=== PATIENT | male | born 1990 ===

== ENCOUNTER 2024-12-15 07:00 | Day surgery (SDC) | payer OTHER ==
[2024-12-08 09:09] VITALS: BP 138/94
[2024-12-08 09:23] LABS: URINE APPEARANCE Clear; URINE BILIRRUBIN Negative (NEGATIVE); URINE BLOOD Negative; URINE COLOR Yellow; URINE GLUCOSE Negative (NEGATIVE); URINE KETONE Negative (NEGATIVE); URINE LEUKOCYTE Negative; URINE NITRATE Negative; URINE PROTEIN Negative (NEGATIVE); URINE UROBILINOGEN 0.2 E.U./dl
[2024-12-08 09:27] LABS: URINE RBC 4.6 uL (0.0-20.8); URINE WBC 1.8 uL (0.0-23.2)
[2024-12-08 09:31] LABS: URINE BACTERIA 3.5 uL (0.0-1933); URINE CAST 0.00 uL (0.0-1.40); URINE EPITHELIAL CELLS 0.6 uL (0.0-38.8)
[2024-12-08 09:35] LABS: BASO % 0.5 % (0.1-1.2); EOS # 0.13 (0.04-0.54); EOS % 1.7 % (0.7-7.0); LYMPH # 1.49 (1.18-3.74); LYMPH % 19.8 % (19.3-53.1); MEAN PLATELET VOLUME 9.00 fl (9.4-12.4); MONO # 0.50 (0.24-0.82); MONO % 6.7 % (4.7-12.5); NEUT # 5.34 (1.56-6.13); NEUT % 71.2 % (34.0-71.1); RED CELL DISTRIBUTION WIDTH 14.2 % (11.6-14.4)
[2024-12-08 10:04] LABS: ALT/SGPT 78.0 U/L (12-78); AST/SGOT 31.0 U/L (15-37); BILIRUBIN TOTAL 0.53 mg/dL (0.3-1.2); BUN CREA RATIO 10.0 (7.0-25.0); CREATININE SERUM 1.15 mg/dL (0.70-1.30); GFR 73.24; GLOBULINA 4.3 G/DL (2.4-3.5); GLUCOSE FASTING 105.0 mg/dL (65-100); OSMOLALITY SERUM 285.0 MOSM/KG (275-295)
[2024-12-08 11:10] LABS: INR 1.0
[~2024-12-15] VITALS: Ht 188 cm; Wt 93.0 kg
[2024-12-15] MEDS ORDERED: CEFAZOLIN SODIUM 1,000 MG VIAL ONE (07:17)
[2024-12-15] MEDS ORDERED: MORPHINE SULFATE 4 MG/ML VIAL IV ONE (14:50)
== END 2024-12-15 16:40 | disposition home or self-care (01) ==
LOC: CIR.AMB 07:00
PROVIDERS: ATTEND Surgery
DX: K43.6 Other and unspecified ventral hernia with obstruction, without gangrene (principal)
CPT/HCPCS: 49594; C1781